=== PATIENT | male | born 1955 | race Caucasian/White ===

== ENCOUNTER 2018-12-03 16:32 | Emergency (ER) | payer MEDICARE, OTHER ==
[~2018-12-03] VITALS: Ht 177.8 cm; Wt 73.4 kg
[~2018-12-03 16:32] MED LIST: AMOX-580 PO; MESA400T15 PO
[2018-12-03 17:02] VITALS: BP 140/62
== END 2018-12-03 19:23 | disposition home or self-care (01) ==
LOC: ER 16:32
DX: T16.2XXA Foreign body in left ear, initial encounter (principal); Z79.899 Other long term (current) drug therapy; Y92.89 Other specified places as the place of occurrence of the external cause
CPT/HCPCS: 99281; 99284